=== PATIENT | female | born 1985 | race Caucasian/White ===

== ENCOUNTER 2017-05-15 12:19 | Inpatient (IN) | payer OTHER ==
[~2017-05-15] VITALS: Ht 172.7 cm; Wt 73.9 kg
[~2017-05-15 12:19] MED LIST: FOLIC ACID1 MG; [UNRECOGNIZED DRUG - OTHER]
[2017-05-22] MEDS ORDERED: OBSTETRIX DHA1 EACH PO (18:43)
== END 2017-05-25 13:39 | disposition home or self-care (01) | DRG 775 ==
LOC: LDR 05-22 17:45 → OB/GYN 05-23 18:56
PROC: 3E0P7VZ Introduction of Hormone into Female Reproductive, Via Natural or Artificial Opening (ICD-10-PCS; 2017-05-22)
PROC: 4A1HXCZ Monitoring of Products of Conception, Cardiac Rate, External Approach (ICD-10-PCS; 2017-05-22)
PROC: 10E0XZZ Delivery of Products of Conception, External Approach (ICD-10-PCS; principal; 2017-05-23)
PROC: 0HQ9XZZ Repair Perineum Skin, External Approach (ICD-10-PCS; 2017-05-23)
DX: O41.03X0 Oligohydramnios, third trimester, not applicable or unspecified (principal); O70.0 First degree perineal laceration during delivery; O13.3 Gestational [pregnancy-induced] hypertension without significant proteinuria, third trimester; Z37.0 Single live birth; Z3A.40 40 weeks gestation of pregnancy

== ENCOUNTER 2017-10-06 05:30 | Day surgery (SDC) | payer OTHER ==
[~2017-10-06 05:30] MED LIST changes: +OBSTETRIX DHA1 EACH PO; +[UNRECOGNIZED DRUG - OTHER] PO
[2017-10-06] MEDS ORDERED: NABUMETONE750 MG PO (09:04)
== END 2017-10-06 13:40 | disposition home or self-care (01) ==
LOC: CIR.AMB 05:30
DX: N93.8 Other specified abnormal uterine and vaginal bleeding (principal); D25.1 Intramural leiomyoma of uterus